=== PATIENT | female | born 1980 | race Caucasian/White ===

== ENCOUNTER 2021-09-27 23:26 | Emergency (ER) | payer BC ==
[2021-09-28] MEDS ORDERED: Acetaminophen 500 MG Tab PO ONE (00:39)
[2021-09-28] MEDS ORDERED: Ibuprofen 600 MG Tab PO ONE (00:39)
[2021-09-28] MEDS ORDERED: Cyclobenzaprine 10 MG Tab PO ONE (00:39)
== END 2021-09-28 02:55 | disposition home or self-care (01) ==
LOC: MW.ED 23:26
DX: S09.90XA Unspecified injury of head, initial encounter (principal); E78.00 Pure hypercholesterolemia, unspecified; I10 Essential (primary) hypertension; E11.9 Type 2 diabetes mellitus without complications; W00.0XXA Fall on same level due to ice and snow, initial encounter
CPT/HCPCS: 70450; 72125; 99283; A9270

== ENCOUNTER 2023-01-01 18:34 | Emergency (ER) | payer BC ==
[2023-01-01] MEDS ORDERED: Sodium Chloride 0.9% 10 ML Syringe FLUSH PRN (19:43)
[2023-01-01] MEDS ORDERED: Sodium Chloride 0.9% 2.5 ML Syringe FLUSH PRN (19:43)
[2023-01-01] MEDS ORDERED: oxyCODONE 5 MG Tab PO STA (20:53)
== END 2023-01-02 04:32 | disposition home or self-care (01) ==
LOC: MW.ED 18:34
DX: N92.0 Excessive and frequent menstruation with regular cycle (principal); D25.9 Leiomyoma of uterus, unspecified; D50.0 Iron deficiency anemia secondary to blood loss (chronic); E78.00 Pure hypercholesterolemia, unspecified; I10 Essential (primary) hypertension; E11.9 Type 2 diabetes mellitus without complications; Z88.0 Allergy status to penicillin; Z79.899 Other long term (current) drug therapy; Z79.4 Long term (current) use of insulin
CPT/HCPCS: 36415; 36430; 76830; 76830-26; 86850; 86900; 86901; 86920; 99284; P9016

== ENCOUNTER 2023-02-20 06:47 | Day surgery (SDC) | payer BC ==
[2023-02-18 11:00] LABS: HEMATOCRIT 37.4 % (36.0-46.0); HEMOGLOBIN 12.2 g/dL (12.0-16.0); MEAN CORPUSCULAR HEMOGLOBIN 26.7 pg (27.0-32.0); MEAN CORPUSCULAR HGB CONC 32.6 g/dL (31.0-37.0); MEAN CORPUSCULAR VOLUME 81.8 fL (80.0-98.0); MEAN PLATELET VOLUME 10.2 fL (7.40-12.00); RED BLOOD CELL COUNT 4.57 M/uL (4.30-5.90); WHITE BLOOD CELL COUNT,WBC 6.64 K/uL (4.0-11.0)
[2023-02-18 11:41] LABS: CALCIUM 8.6 mg/dL (8.5-10.1); CARBON DIOXIDE,CO2 25.5 mmol/L (21.0-32.0); CREATININE 0.5 mg/dL (0.6-1.0); EST CRCL DRUG DOSING (CG) 129.2 mL/min; POTASSIUM,K 3.6 mmol/L (3.5-5.1)
[~2023-02-20 06:47] MED LIST: Lactated Ringers 1,000 ML IV SCH; Sodium Chloride 0.9% 10 ML Syringe FLUSH PRN; Sodium Chloride 0.9% 2.5 ML Syringe FLUSH PRN; Sodium Chloride 0.9% 20 ML SDV IV PRN; ceFAZolin 2 GM in Sodium Chloride 0.9% 50 ML IV ONE
[2023-02-20] MEDS ORDERED: Albuterol 0.083% 2.5 MG/3 ML Neb Soln NEB PRN (07:11)
[2023-02-20] MEDS ORDERED: Morphine 2 MG/ML SYRINGE IVPUSH PRN (07:11)
[2023-02-20] MEDS ORDERED: droPERidol 5 MG/2 ML SDV IVPUSH PRN (07:11)
[2023-02-20] MEDS ORDERED: Metoclopramide 10 MG/2 ML SDV IVPUSH PRN (07:11)
[2023-02-20] MEDS ORDERED: fentaNYL 50 MCG/ML SDV IVPUSH PRN (07:11)
[2023-02-20] MEDS ORDERED: HYDROmorphone 1 MG/ML Syringe IVPUSH PRN (07:11)
[2023-02-20] MEDS ORDERED: Ondansetron 4 MG/2 ML SDV IVPUSH PRN ×2 (07:11→09:57)
[2023-02-20] MEDS ORDERED: Naloxone 0.4 MG/ML SDV IVPUSH PRN (07:11)
[2023-02-20] MEDS ORDERED: Propofol 200 MG/20 ML SDV ONE (07:17)
[2023-02-20] MEDS ORDERED: fentaNYL 100 MCG/2 ML SDV ONE ×2 (07:17→09:49)
[2023-02-20] MEDS ORDERED: Dexamethasone 4 MG/ML 5 ML MDV ONE (07:18)
[2023-02-20] MEDS ORDERED: Lidocaine 2% 5 ML SDV ONE (07:18)
[2023-02-20] MEDS ORDERED: Ketorolac 30 MG/ML SDV ONE (07:18)
[2023-02-20] MEDS ORDERED: Dexmedetomidine 200 MCG/2 ML SDV ONE (07:18)
[2023-02-20] MEDS ORDERED: Water For Injection, Sterile 20 ML ONE (07:18)
[2023-02-20] MEDS ORDERED: Sugammadex Sodium 200 MG/2 ML VIAL ONE (07:18)
[2023-02-20] MEDS ORDERED: Rocuronium Bromide 50 MG/5 ML Syringe ONE ×2 (07:18→08:55)
[2023-02-20] MEDS ORDERED: Ropivacaine 0.5% 5 MG/ML 30 ML SDV ONE (07:21)
[2023-02-20] MEDS ORDERED: Magnesium Sulfate (4.06 MEQ/ML) 5 GM/10 ML SDV ONE (08:02)
[2023-02-20] MEDS ORDERED: ceFAZolin 2 GM Vial ONE (08:07)
[2023-02-20] MEDS ORDERED: Ondansetron 4 MG/2 ML SDV ONE (08:48)
[2023-02-20] MEDS ORDERED: Fluorescein 5 ML Vial ONE (09:16)
[2023-02-20] MEDS ORDERED: Morphine 4 MG/ML Syringe IVPUSH PRN (09:57)
[2023-02-20] MEDS ORDERED: Promethazine 25 MG/ML SDV IM PRN (09:57)
[2023-02-20] MEDS ORDERED: Ketorolac 30 MG/ML SDV IVPUSH ONE (09:57)
[2023-02-20] MEDS ORDERED: Acetaminophen/oxyCODONE 325-5 MG Tab PO PRN (09:57)
[2023-02-20] MEDS ORDERED: Ketorolac 30 MG/ML SDV IVPUSH PRN (13:15)
[2023-02-20] MEDS ORDERED: 50% Dextrose in Water 50 ML Syringe IVPUSH PRN (17:11)
[2023-02-20] MEDS ORDERED: Glucagon,Human Recombinant 1 MG Vial IM PRN (17:11)
[2023-02-20] MEDS: Insulin Aspart 100 Units/ML 3 ML Pen SUBCUT SCH (17:29)
[2023-02-20] MEDS: Acetaminophen/oxyCODONE 325-5 MG Tab PO PRN (20:17)
[2023-02-20] MEDS ORDERED: Insulin Glargine,Hum.Rec.Anlog 100 UNIT/ML 3 ML Pen SUBCUT SCH ×2 (21:00)
[2023-02-20] MEDS: metFORMIN 500 MG Tab PO SCH (22:07)
[2023-02-20] MEDS: Lisinopril 10 MG Tab PO SCH (22:07)
[2023-02-21] MEDS: Acetaminophen/oxyCODONE 325-5 MG Tab PO PRN ×3 (00:36→11:42)
[2023-02-21] MEDS: Insulin Aspart 100 Units/ML 3 ML Pen SUBCUT SCH ×3 (02:43→08:46)
[2023-02-21 06:34] LABS: BASOPHILS PERCENT AUTO 0.1 % (0.0-1.5); EOSINOPHILS PERCENT AUTO 0.1 % (0.0-7.0); HEMATOCRIT 32.7 % (36.0-46.0); HEMOGLOBIN 10.8 g/dL (12.0-16.0); LYMPHOCYTES ABSOLUTE AUTO 1.5 K/uL (0.6-2.4); LYMPHOCYTES PERCENT AUTO 16.4 % (16.0-40.0); MEAN CORPUSCULAR HEMOGLOBIN 27.3 pg (27.0-32.0); MEAN CORPUSCULAR VOLUME 82.8 fL (80.0-98.0); MONOCYTES ABSOLUTE AUTO 0.5 K/uL (0.0-0.8); MONOCYTES PERCENT AUTO 5.8 % (0.0-15.0); NEUTROPHILS ABSOLUTE AUTO 7.1 K/uL (1.4-5.7); NEUTROPHILS PERCENT AUTO 77.6 % (48.0-80.0); NRBC ABSOLUTE 0 K/uL; PLATELET COUNT,PLT 212 K/uL (150-400); RED BLOOD CELL COUNT 3.95 M/uL (4.30-5.90); WHITE BLOOD CELL COUNT,WBC 9.16 K/uL (4.0-11.0)
[2023-02-21 06:55] LABS: CARBON DIOXIDE,CO2 26.2 mmol/L (21.0-32.0); CREATININE 0.8 mg/dL (0.6-1.0); EST CRCL DRUG DOSING (CG) 80.75 mL/min; POTASSIUM,K 3.9 mmol/L (3.5-5.1)
[2023-02-21] MEDS: metFORMIN 500 MG Tab PO SCH (07:49)
[2023-02-21] MEDS: Lisinopril 10 MG Tab PO SCH (10:41)
[2023-02-21] MEDS ORDERED: Rosuvastatin 10 MG Tab PO SCH (21:00)
== END 2023-02-21 11:55 | disposition home or self-care (01) ==
LOC: MW.SDS 06:47 → MW.OB 09:57 → MW.SDS 02-21 11:55
PROVIDERS: ATTEND Obstetrics & Gynecology
DX: N87.9 Dysplasia of cervix uteri, unspecified (principal); N83.332 Acquired atrophy of left ovary and fallopian tube; D25.1 Intramural leiomyoma of uterus; N80.00 Endometriosis of the uterus, unspecified; N80.03 Adenomyosis of the uterus; I10 Essential (primary) hypertension; E78.5 Hyperlipidemia, unspecified; D64.9 Anemia, unspecified; E11.9 Type 2 diabetes mellitus without complications; R82.4 Acetonuria; Z88.0 Allergy status to penicillin; Z79.84 Long term (current) use of oral hypoglycemic drugs
CPT/HCPCS: 36415; 58573; 64488; 80048; 82947; 84703; 85025; 85027; 86850; 86900; 86901; 86902; 86920; 86921; 86922; A9270; J0131; J0690; J1100; J1815; J1885; J2704; J2795; J3010; J3475; J3490; J7030; J7120; 00840; J2405